=== PATIENT | female | born 2000 | race Two or more races ===

== ENCOUNTER 2024-12-03 17:58 | Inpatient (IN) | payer OTHER ==
[~2024-12-03] VITALS: Ht 170.2 cm; Wt 46.3 kg
--- NOTE | 2024-12-03 18:28 | ED.PDOC ---
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 Patient reports on being 7x weeks and having continuing bleeding following atraumatic and unprovoked onset. Denies any nausea, vomiting, diarrhea, abdominal pain, or further associated symptoms. Was mildly hypotensive at arrival. Chief Complaint: Vaginal Bleed Time Seen by MD: 18:10 Reviewed Notes: Nurses Notes, Medications, Allergies Allergies: Coded Allergies: No Known Drug Allergy (Verified Allergy, Unknown, 12/03/24) Information Source: Patient Mode of Arrival: Ambulatory Timing: Days Prehospital treatment: None Severity: Moderate Bleeding Quality: Bright Red Onset Of Mass/Bleeding: Spontaneous Past Medical History PAST MEDICAL HISTORY: Denies Past Medical History (Other): Patient states she is currently using several weeks . Surgical History: Denies all surgeries FORENSIC SERGEANT History: No Pertinent FORENSIC SERGEANT History Family History Family History: Reviewed,noncontributory to illness Social History Smoker: Non-Smoker Alcohol: Denies ETOH Use Drugs: Denies Drug Use Lives In: Home Constitutional: denies: chills, diaphoresis, fatigue, fever, malaise, sweats, weakness, others EENTM: denies: blurred vision, double vision, ear bleeding, ear discharge, ear drainage, ear pain, ear ringing, eye pain, eye redness, hearing loss, mouth pain, mouth swelling, nasal discharge, nose bleeding, nose congestion, nose pain, photophobia, tearing, throat pain, throat swelling, voice changes, others Respiratory: denies: cough, hemoptysis, orthopnea, SOB at rest, shortness of breath, SOB with excertion, stridor, wheezing, others Cardiovascular: denies: chest pain, dizzy spells, diaphoresis, Dyspnea on exertion, edema, irregular heart beat, left arm pain, lightheadedness, palpitations, PND, syncope, others Gastrointestinal: reports: abdominal pain; denies: abdomen distended, blood streaked bowels, constipated, diarrhea, dysphagia, difficulty swallowing, hematemesis, melena, nausea, poor appetite, poor fluid intake, rectal bleeding, rectal pain, vomiting, others Genitourinary: reports: abnormal vagina bleeding; denies: burning, dyspareunia, dysuria, flank pain, frequency, hematuria, incontinence, pain, , vagina discharge, urgency, others Neurological: denies: dizziness, fainting, headache, left sided numbness, left sided weakness, numbness, paresthesia, pre-existing deficit, right sided numbness, right sided weakness, seizure, speech problems, tingling, tremors, weakness, others Musculoskeletal: denies: back pain, gout, joint pain, joint swelling, muscle pain, muscle stiffness, neck pain, others Integumetry: denies: bruises, change in color, change in hair/nails, dryness, laceration, lesions, lumps, rash, wounds, others Allergic/Immunocompromised: denies: Difficulty Healing, Frequent Infections, Hives, Itching, others Hematologic/Lymphatic: denies: anemia, blood clots, easy bleeding, easy bruising, swollen glands, others Endocrine: denies: excessive hunger, excessive sweating, excessive thirst, excessive urination, flushing, intolerance to cold, intolerance to heat, unexplained weight gain, unexplained weight loss, others Psychiatric: denies: anxiety, bipolar disorder, depression, hopeless, panic disorder, schizophrenia, sleepless, suicidal, others Physical Exam General Appearance: Mild Distress (Moderate distress at time of evaluation.), Thin HEENT: Normal ENT Inspection, Pharynx Normal, TMs Normal Neck: Full Range of Motion, Non-Tender, Normal, Normal Inspection Respiratory: Chest Non-Tender, Lungs Clear, No Accessory Muscle Use, No Respiratory Distress, Normal Breath Sounds Cardiovascular: No Edema, No JVD, No Murmur, No Gallop, Normal Peripheral Pulses, Regular Rate/Rhythm Breast Exam: Deferred Gastrointestinal: Other (Diffuse bilateral lower abdominal/pelvic tenderness to palpation. No signs of trauma. No pulsatile masses. Unable to appreciate .) Genitalia: Deferred Pelvic: Deferred Rectal: Deferred Extremities: No calf tenderness, Normal capillary refill, Normal inspection, Normal range of motion, Non-tender, No pedal edema Neurologic: Alert, No Motor Deficits, Normal Affect, Normal Mood, No Sensory Deficits Cerebellar Function: NOT DONE Reflexes: NOT DONE Skin: Dry, Normal Color, Warm Lymphatic: No Adenopathy Was a procedure done? Was a procedure done?: No Differential Diagnosis (FORENSIC SERGEANT) Vaginal Bleeding: - Complete, - Incomplete, - Inevitable, - Missed, - Threatened, Other (Ectopic , dysfunctional vaginal bleeding before 22 weeks gestation) X-Ray, Labs, Meds, VS Vital Signs Date Time Temp Pulse Resp B/P (MAP) Pulse Ox O2 Delivery O2 Flow Rate FiO2 12/03/24 18:10 98.1 85 16 94/56 99 98.1 Lab Test 12/03/24 22:05 12/03/24 18:26 Range/Units Urine Color Colorless Yellow Urine Clarity Turbid H Clear Urine pH 7.0 5.0-9.0 Urine Specific [place] 1.030 1.001-1.035 Urine Protein Trace H Negative Urine Ketones Trace Negative Urine Blood Negative Negative /uL Urine Nitrite 2+ H Negative Urine Bilirubin Negative Negative Urine Urobilinogen 4 H Negative mg/dL Urine Leukocyte Esterase Trace Negative /uL Urine Glucose Normal Normal mg/dL White Blood Count 6.2 4.4-10.8 10^3/uL Red Blood Count 4.04 4.0-5.20 10^6/uL Hemoglobin 10.9 L 12.2-16.2 g/dL Hematocrit 33.0 L 36.0-46.0 % Mean Corpuscular Volume 81.6 80.0-100.0 fL Mean Corpuscular Hemoglobin 26.9 L 28.0-32.0 pg Mean Corpuscular Hemoglobin Concent 32.9 32.0-36.0 g/dL Red Cell Distribution Width 15.8 H 11.8-14.3 % Platelet Count 272 140-450 10^3/uL Mean Platelet Volume 8.1 6.9-10.8 fL Neutrophils (%) (Auto) 68.4 37.0-80.0 % Lymphocytes (%) (Auto) 22.7 10.0-50.0 % Monocytes (%) (Auto) 7.9 0.0-12.0 % Eosinophils (%) (Auto) 0.4 0.0-7.0 % Basophils (%) (Auto) 0.6 0.0-2.0 % Neutrophils # (Auto) 4.3 1.6-8.6 10 ^3/uL Lymphocytes # (Auto) 1.4 0.4-5.4 10 ^3/uL Monocytes # (Auto) 0.5 0-1.3 10 ^3/uL Eosinophils # (Auto) 0 0-0.8 10 ^3/uL Basophils # (Auto) 0 0-0.2 10 ^3/uL Nucleated Red Blood Cells 0.1 % Sodium Level 140 136-145 mmol/L Potassium Level 4.3 3.5-5.1 mmol/L Chloride Level 107 98-107 mmol/L Carbon Dioxide Level 28 20-31 mmol/L Anion Gap 5 5-15 Blood Urea Nitrogen 6 L 9-23 mg/dL Creatinine 0.83 0.550-1.02 mg/dL Glomerular Filtration Rate Calc 100 >90 mL/min BUN/Creatinine Ratio 7.2 L 10.0-20.0 Serum Glucose 72 L 74-106 mg/dL Calcium Level 9.0 8.7-10.4 mg/dL Beta HCG, Quantitative 34504.3 H 1.5-4.2 mIU/mL X-Ray, Labs, Meds, VS Comment All studies performed the ED were evaluated by me personally. Serum laboratories were remarkable for a mild anemia [place] [address]. Transvaginal ultrasound showed a probable ectopic . Contacted Dr. Arteaga advise her of patient presentation as well as laboratory and imaging findings. She agreed to follow up with the patient in the ED tomorrow morning for probable laparoscopic removal. 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 Electronically submitted by Tirso Benton ([email or web address]). I personally scribed for FARNAZ SPENCE PAC ([employer]) on 12/03/24 at 18:52. Electr onically submitted by Tirso Benton ([email or web address]). FARNAZ SPENCE PAC Dec 03, 2024 18:28
[2024-12-03 18:43] LABS: Hematocrit 33.0 % (36.0-46.0); Hemoglobin 10.9 g/dL (12.2-16.2); Mean Corpuscular Hemoglobin 26.9 pg (28.0-32.0); Mean Corpuscular Volume 81.6 fL (80.0-100.0); Nucleated Red Blood Cells % 0.1 %
[2024-12-03 19:02] LABS: Chloride 107 mmol/L (98-107); Potassium 4.3 mmol/L (3.5-5.1); Sodium 140 mmol/L (136-145)
[2024-12-03 19:03] LABS: Anion Gap 5 (5-15); Calcium 9.0 mg/dL (8.7-10.4); Carbon Dioxide 28 mmol/L (20-31)
[2024-12-03 19:08] LABS: BUN/Creatinine Ratio 7.2 (10.0-20.0); Blood Urea Nitrogen 6 mg/dL (9-23); Glucose 72 mg/dL (74-106)
--- NOTE | 2024-12-03 20:28 | DVH ---
INDICATION: Nine days of vaginal bleeding TECHNIQUE: Multiple real-time grayscale transabdominal and transvaginal sonographic images along with color and duplex Doppler of the uterus and ovaries were obtained. COMPARISON: None FINDINGS: The uterus measures uterus measures 8.7 by 4.6 x 5.2 cm cm. Uterine volume is 128.35 mL. Th e endometrial stripe 9.02 mm. In the cul-de-sac is a 2.13 x 1.53 x 1.57 cm cystic/solid area can not exclude ectopic. The right ovary measures 3.2 x 2.2 x 2.2 cm. Right ovarian volume is 8 2 cc The left ovary measures 3.1 x 2.0 x 2.2 cm. Left ovarian volume 7 cc. In the left ovary is a 1.7 by 1.3 x 1.5 cm anechoic lesion most likely a follicle. Subsequent color and duplex Doppler interrogation of the ovaries demonstrated symmetric vascular flow to both ovaries, though this does not exclude the possibility of torsion due to the dual blood suppl y. IMPRESSION: 1. No IUP 2. 2.13 x 1.53 x 1.57 cm cystic/solid mass posterior to the uterus in the left adnexa.
[2024-12-03 22:10] LABS: Urine Protein, UAD TRACE (Negative)
[2024-12-03] MEDS: SODIUM CHLORIDE 0.9% 1,000 ML IV ONE (22:45)
[2024-12-03 22:55] LABS: INR 1.06 (0.9-1.15); Partial Thromboplastin Time 27.1 SEC (24.5-34.5); Prothrombin Time 11.2 sec (9.3-11.8)
[2024-12-04] VITALS (7 sets, daily range): BP systolic 98–118; BP diastolic 66–80; PULSE 50–77; RESP 12–20; TEMP 97.5–98; O2SAT 97–100
--- NOTE | 2024-12-04 07:29 | DVHHP ---
ADMIT DATE: 12/03/2024 CHIEF COMPLAINT: Vaginal bleeding, abdominal pain. HISTORY OF PRESENT ILLNESS: The patient is a 24-year-old 5, para 1-0-3-1 with suspected ectopic on the left side, left adnexa. Uterus is 8.7 in size. The patient came in with vaginal bleeding. Beta hCG was 12,742. The patient states she was at [facility] and they suspected that she had an ectopic. She has had 9 days history of abnormal bleeding. PAST MEDICAL HISTORY: None. PAST SURGICAL HISTORY: Termination of x3. SOCIAL HISTORY: Positive for marijuana smoking, 3 terminations, 1 vaginal. FAMILY HISTORY: None. REVIEW OF SYSTEMS: Consistent with HPI. ALLERGIES: No known drug allergies. PHYSICAL EXAMINATION: VITAL SIGNS: Stable, afebrile. HEENT: Within normal limits. CARDIOVASCULAR: Regular rate and rhythm. LUNGS: Clear to auscultation. BREASTS: Symmetrical. No masses. ABDOMEN: Soft. Lower quadrant tenderness. Rebound. PELVIC: Deferred at this point. EXTREMITIES: No clubbing, cyanosis or edema. IMPRESSION: Left ectopic . PLAN: Laparoscopy, possible removal of affected tube, ovary, or both on the involved side, possible exploratory laparotomy, possible blood transfusion. Informed consent obtained. Risks and complications of surgery include infection, bleeding, hematoma formation, injury to bowel or bladder, surrounding organ, possibility of DVT, pulmonary embolism, and risks of anesthesia discussed with the patient. Options were reviewed. All questions answered. The patient fully understands. She wishes to proceed with planned procedure. DO MAURA Mckay TID: [id number] RECEIPT: [id number]
[2024-12-04] MEDS ORDERED: MIDAZOLAM HCL 2MG/2ML 2ml VIAL (1mg/ml) ONE (07:39)
[2024-12-04] MEDS ORDERED: HYDROmorphone HCL 2 MG/ML VL/or syr ONE (07:39)
[2024-12-04] MEDS ORDERED: fentaNYL CITRATE 100 MCG/2 ML VL ONE (07:39)
[2024-12-04] MEDS ORDERED: PROPOFOL 10 MG/ML 20 ML IV ONE (07:42)
[2024-12-04] MEDS ORDERED: MORPHINE SULFATE INJ 2 MG/ml SYRG IV PRN (07:45)
[2024-12-04] MEDS: ceFAZolin 1GM/50ML 50 ML IV ONE (07:45)
[2024-12-04] MEDS ORDERED: NITROGLYCERIN 0.4 MG SL TAB SL PRN (07:45)
[2024-12-04] MEDS: LIDOCAINE W/ EPINEPHRINE 1% 20ML VIAL ONE (08:40)
[2024-12-04] MEDS: BUPIVACAINE HCL 0.25% P/F 10 ML VIAL ONE (08:40)
[2024-12-04] MEDS: LACTATED RINGER'S 1,000 ML IV SCH (08:55)
[2024-12-04] MEDS ORDERED: MORPHINE SULFATE 4 MG/ML SYR/VIAL IV PRN (09:00)
[2024-12-04] MEDS ORDERED: ONDANSETRON HCL 4 MG/2 ML VIAL IV ONE (09:00)
[2024-12-04] MEDS ORDERED: MIDAZOLAM HCL 2MG/2ML 2ml VIAL (1mg/ml) IV PRN (09:00)
[2024-12-04] MEDS ORDERED: HYDROmorphone HCL 2 MG/ML VL/or syr IV PRN (09:00)
[2024-12-04] MEDS ORDERED: hydrALAZINE HCL 20 MG/ML VL IV PRN (09:00)
[2024-12-04] MEDS ORDERED: BISACODYL 10 MG RECT SUPP PR PRN (09:30)
[2024-12-04] MEDS ORDERED: RHO (D) IMMUNE GLOBULIN 300 MCG INJ IM PRN (09:30)
[2024-12-04] MEDS ORDERED: ONDANSETRON HCL 4 MG/2 ML VIAL IV PRN (09:30)
[2024-12-04] MEDS ORDERED: LACTATED RINGER'S 1,000 ML IV SCH (09:30)
--- NOTE | 2024-12-04 09:32 | DVHOP2 ---
Operative Report DATE OF OPERATION: 12/04/24 PREOPERATIVE DIAGNOSES: left adenxal ectopic . POSTOPERATIVE DIAGNOSES: left cornual ectopic preg SURGEON: Idalia Patel D.O./marianna ANESTHESIOLOGIST: dwayne TYPE OF ANESTHESIA : General CONSENT: The patient was informed of the risks and benefits of the procedure. The patient was informed of the risks and benefits of the procedure. These incl ude but are not limited to , complications of anesthesia, postoperative infection, incomplete relief of symptoms, recurrence of symptoms, damage to blood vessels, nerves and tendons, deep venous thrombosis, pulmonary embolism and possible need for repeat surgery in the future. FINDINGS: left cornual . Uterus is 8-week sized. Left ovary was normal appearing. Right tubeand ovary was normal appearing. PROCEDURES: Laparoscopic left cornual resection of ectopic preg PROCEDURE IN DETAIL: The patient was taken to the operating room where she was placed under general anesthesia. She was then prepped and draped in the usual sterile manner in dorsal lithotomy position. Bladder was emptied using Kurtz catheter. Examination under anesthesia revealed the above findings. A weighted speculum was placed in the vagina. Anterior lip of the cervix was grasped using single-tooth tenaculum. Uterus was sounded to 8 cm. HUMI catheter was placed. Attention was then turned to the abdomen where Veress needle was introduced. Abdomen was distended with 3L of CO2 gas. Using Visiport, under direct visualization, abdomen was entered through the umbilical fold. A 5-mm trocar was placed in the suprapubic region. A 12-mm trocar was placed on the left lateral aspect of the abdomen 4 cm away from the midline. Survey of pelvis and abdomen revealed left cornual . right tube and ovary were grossly normal appearing. A AZUCENA stapler was then introduced to excise the ectopic . This was done successfully. Hemoclips were applied. Pelvis was copiously irrigated with normal saline. Using endobag, the specimen was brought out through the 12-mm port. No bleeding was noted. Incisional ports were closed using 4-0 Vicryl as well as 0 Vicryl for the bigger port enclosing the fascia. The patient tolerated the procedure well. The 12-mm trocar site was closed using staplers. HUMI catheter was removed from the vagina and cervix. The patient was taken to the recovery room in a stable condition. ESTIMATED BLOOD LOSS: Estimated blood loss was noted to be 20 mL. Visit Coding OBGYN Date of Service: Dec 04, 2024 Billing Provider: IDALIA PATEL DO MASTER LAY OUT SPECIALIST Common Visit Codes: 53557-[id number] INP/OBS CARE (HIGH), 86986-[id number] INP/OBS CARE(HIGH) MASTER LAY OUT SPECIALIST Procedure Codes: 55322-XBH.SURG:ON OVIDUCT/OVARY, 54794-XB ECTOP PREG TUBAL/OVARIAN IDALIA PATEL DO Dec 04, 2024 09:32
--- NOTE | 2024-12-04 09:34 | POSTOP ---
Post-Operative Note Post-Operative Note Preop Diagnosis left ectopic preg Postop Diagnosis: left cornual ectopic preg Operation performed laparosocpic resection of left cornual preg Specimen left cornual Anesthesia: General Anesthesiologist: dwayne Blood Loss(fluid mgmt) 20ml Surgeon Idalia Arteaga Condenser Setter marianna Conner carolyn,clips Complications & Mgmt none Date 12/04/24 Time 09:32 Visit Coding OBGYN Date of Service: Dec 04, 2024 Billing Provider: IDALIA ARTEAGA DO AVIATION CONSULTANT Common Visit Codes: 70734-CGQTSIR INP/OBS CARE (HIGH) AVIATION CONSULTANT Procedure Codes: 23811-QL ECTOP PREG TUBAL/OVARIAN IDALIA ARTEAGA DO Dec 04, 2024 09:34
[2024-12-04] MEDS ORDERED: DOCU-94 PO (09:35)
[2024-12-04] MEDS ORDERED: IBUP-1456 PO (09:35)
[2024-12-04] MEDS ORDERED: HYDR-4072 PO (09:35)
[2024-12-04] MEDS: HYDROcodone-ACET 10/325MG TAB PO PRN (10:11)
[2024-12-04] MEDS: DOCUSATE SOD 100 MG CAP PO SCH (10:26)
[2024-12-04] MEDS: ONDANSETRON HCL 4 MG/2 ML VIAL IV ONE (11:00)
[2024-12-04] MEDS: ceFAZolin 1GM/50ML 50 ML IV SCH (14:16)
[2024-12-04] MEDS: HYDROmorphone HCL 2 MG/ML VL/or syr IV PRN (14:20)
[2024-12-04 21:20] LABS: Hematocrit 36.0 % (36.0-46.0); Hemoglobin 11.8 g/dL (12.2-16.2); Mean Corpuscular Hemoglobin 26.6 pg (28.0-32.0); Mean Corpuscular Volume 81.1 fL (80.0-100.0); Nucleated Red Blood Cells % 0.0 %
[2024-12-05 01:00] VITALS: BP 97/66; PULSE 48; RESP 17; TEMP 98.3; O2SAT 98
[2024-12-05 05:00] VITALS: BP 107/80; PULSE 66; RESP 17; TEMP 98.3; O2SAT 100
[2024-12-05 06:37] LABS: Hematocrit 30.7 % (36.0-46.0); Hemoglobin 10.2 g/dL (12.2-16.2); Mean Corpuscular Hemoglobin 27.0 pg (28.0-32.0); Mean Corpuscular Volume 80.8 fL (80.0-100.0); Nucleated Red Blood Cells % 0.1 %
--- NOTE | 2024-12-05 07:09 | DVHPN2 ---
Chief Complaints Patient reports: No new complaints Nursing reports: No new complaints Objective Vitals Vital Signs Date Time Temp Pulse Resp B/P (MAP) Pulse Ox O2 Delivery O2 Flow Rate FiO2 12/05/24 05:00 98.3 66 17 107/80 (89) 100 98.3 12/04/24 20:00 Room Air* 0 21 Medications Current Medications Medications (Trade) Dose Ordered Sig/Rhett Route PRN Reason Start Time Stop Time Status Last Admin Acetaminophen/ Hydrocodone Bitart ([place] 10/325MG Tab) 1 tab Q4HP PRN PO SEVERE PAIN (7-10 PAIN SCALE) 12/04/24 09:30 12/04/24 20:40 Bisacodyl (Dulcolax Suppository) 10 mg DAILYP PRN [place] FOR CONSTIPATION 12/04/24 09:30 Cefazolin Sodium 50 ml @ 100 mls/hr Q8HR IV 12/04/24 14:00 12/05/24 05:45 Docusate Sodium (Colace Capsule) 100 mg Q12HP PO 12/04/24 10:00 12/04/24 22:05 Hydromorphone HCl (Dilaudid Injection) 1 mg Q4HP PRN IV BREAKTHRU PAIN 12/04/24 09:30 12/04/24 14:20 Lactated Ringer's 1,000 ml @ 125 mls/hr Q8H IV 12/04/24 09:30 12/05/24 01:30 Morphine Sulfate 2 mg Q30M PRN IV FOR CHEST PAIN 12/04/24 07:45 Nitroglycerin (Ntrostat Sublingual) 0.4 mg Q5MINP PRN SL FOR CHEST PAIN 12/04/24 07:45 Ondansetron HCl (Zofran) 4 mg Q4HP PRN IV NAUSEA / VOMITING 12/04/24 09:30 Rho Immune Globulin (Rhogam) 300 mcg ONCE PRN IM If Rh negative 12/04/24 09:30 General: Normal Lungs: Normal Cardiovascular: Normal Abdominal: Soft Extremities: Normal Studies Laboratory Tests 12/05/24 05:14 12/03/24 18:26 Test 12/03/24 18:26 Range/Units Serum Glucose 72 L 74-106 mg/dL Ass/Plan Assessment s/p expl lap left resection of cornual Plan dc home fu this wed Visit Coding OBGYN Date of Service: Dec 05, 2024 Billing Provider: OZZY PATEL DO PERSONNEL CLERK Common Visit Codes: 67190-[id number] INP/OBS CARE (HIGH) PERSONNEL CLERK Procedure Codes: 24421-ZATH TX OF ECTOPIC PREG OZZY PATEL DO Dec 05, 2024 07:09
[2024-12-05 08:00] VITALS: PULSE 78; RESP 18; O2SAT 98
[2024-12-05 09:29] VITALS: BP 119/83; PULSE 56; RESP 17; TEMP 97.3; O2SAT 96
--- NOTE | 2024-12-05 12:13 | DVHDS2 ---
Physician Discharge Progress N Final Diagnosis: left cornual ectopic preg Operations or Procedures: Operations or Procedures laparosocpic resection of left cornual preg Condition on Discharge: Good Disposition: Home Discharge Instructions: Diet: Regular Activity: No Restrictions, As Tolerated Follow Up/Referral: this thu Medications: eryn manceraco Follow Up Care: Specialist: wed Discharge Statement: "Patient was advised to return to the ER or call 911 if any headaches, dizzines s, shortness of breath, chest pain, abdominal pain, bleeding, fevers, or worsening of medical condition. Patient was counseled about treatment plan, medications, possible side effects, patientverbalized understanding. All questions were answered to the best of my ability. This discharge took greater then 30 minutes in planning, reviewing documentation, counseling the patient, and discussing with other team members." Visit Coding OBGYN Date of Service: Dec 05, 2024 Billing Provider: OZZY PATEL DO LEG ASSEMBLER Common Visit Codes: [id number] INP/OBS CARE(HIGH), 05195-EBE/OBS DISCH DAY >30MIN LEG ASSEMBLER Procedure Codes: 50026-HD ECTOP PREG TUBAL/OVARIAN OZZY PATEL DO Dec 05, 2024 12:13
== END 2024-12-05 11:20 | disposition home or self-care (01) | DRG 547 ==
LOC: ER 18:05 → OVERFLOW 12-04 07:44 → CENTRAL 12-04 11:20
PROVIDERS: ADMIT Obstetrics & Gynecology; ATTEND Obstetrics & Gynecology
PROC: 10T24ZZ Resection of Products of Conception, Ectopic, Percutaneous Endoscopic Approach (ICD-10-PCS; principal; 2024-12-04 07:36)
DX: O00.80 Other ectopic pregnancy without intrauterine pregnancy (principal); Z79.899 Other long term (current) drug therapy
CPT/HCPCS: 36415; 76801; 76817; 80048; 81003; 84702; 85025; 85610; 85730; 86850; 86900; 86901; G0378; J1100; J2250; J2405; J2704; J3490